=== PATIENT | male | born 1970 | race Caucasian/White ===

== ENCOUNTER 2017-09-24 13:20 | Emergency (ER) | payer SELFPAY ==
[~2017-09-24] VITALS: Ht 190.5 cm; Wt 86.2 kg
[~2017-09-24 13:20] MED LIST: ALBU90OI61 INH; DOXY100 PO; HYDACE5 PO; HYDGUAL120 PO; IBUP600 PO; Monodox100 MG PO
== END 2017-09-24 14:00 | disposition home or self-care (01) ==
LOC: ER 13:20
DX: R20.2 Paresthesia of skin (principal)
CPT/HCPCS: 29125; 99283